=== PATIENT | male | born 1990 | race Asian ===

== ENCOUNTER 2020-05-24 14:42 | Outpatient (CLI) | payer OTHER ==
--- NOTE | 2020-05-24 15:12 | RAD ---
Exam:3 views right hand HISTORY: Pain COMPARISON: None FINDINGS: Joint spaces are preserved. No fracture, cortical irregularity or periosteal reaction. IMPRESSION: No radiographic abnormality
== END 2020-05-24 14:43 | disposition home or self-care (01) ==
LOC: SCSRAD 14:42
PROVIDERS: ATTEND Family Medicine
DX: M79.644 Pain in right finger(s) (principal)